=== PATIENT | male | born 1960 | race Caucasian/White ===

== ENCOUNTER 2017-06-06 21:26 | Observation (INO) | payer OTHER, SELFPAY ==
[~2017-06-06 21:26] MED LIST: ISOVUE-370 76%-LOCM 1 ML ONE
[2017-06-06 21:43] LABS: #Basophils 0.1 thou/uL (0.0-0.2); #Eosinphils 0.6 thou/uL (0.0-0.7); #Lymphocytes 2.9 thou/uL (1.20-3.40); #Monocytes 0.9 thou/uL (0.11-0.59); #Neutrophils 6.4 thou/uL (1.40-6.50); %Basophils 0.7 % (0.0-1.0); %Eosinophils 5.7 % (0.0-10.0); %Lymphocytes 26.4 % (21.0-51.0); %Monocytes 8.5 % (0.0-10.0); Hematocrit 44.6 % (42.0-52.0); Red Blood Cell (RBC) Count 4.28 mill/uL (4.70-6.10); White Blood Cell (WBC) Count 10.9 thou/uL (4.8-10.8)
[2017-06-06 21:53] LABS: PTT 26.4 SEC (22.9-36.1); Prothrombin Time 14.6 SEC (12.0-14.7)
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
[2017-06-06 22:03] LABS: ALT (SGPT) 108 U/L (8-55); AST (SGOT) 95 U/L (5-34); Alkaline Phosphatase 68 U/L (40-150); Anion Gap 19 mmol/L (10-20); BUN (Urea Nitrogen) 6 mg/dL (8.4-25.7); Bilirubin, Total 0.6 mg/dL (0.2-1.2); Calc. Creatinine Clearance 0 mL/min (70-130); Calcium 8.3 mg/dL (7.8-10.44); Carbon Dioxide 16 mmol/L (22-29); Chloride 104 mmol/L (98-107); Estimated GFR-MDRD Greater than 90; Globulin 3.7 g/dL (2.4-3.5); Protein, Total 7.4 g/dL (6.0-8.3)
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
[2017-06-06] MEDS ORDERED: Lidocaine 1% w/Epinephrine 1:200K 30 ML VIAL ONE (22:05)
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
[2017-06-06] MEDS ORDERED: Dextrose 5% in Water 1,000 ML IV PRN ×2 (22:52→22:57)
[2017-06-06] MEDS ORDERED: Ondansetron HCl/PF 4 MG/2 ML Vial IVP PRN (22:52)
[2017-06-06] MEDS ORDERED: Dextrose 50% Abboject 50 ML SYRINGE SLOW IVP PRN ×2 (22:52→22:57)
[2017-06-06] MEDS ORDERED: Rib Fracture Protocol PO SCH (23:00)
[2017-06-06] MEDS ORDERED: Cyclobenzaprine 10 MG TAB PO PRN (23:30)
[2017-06-06] MEDS ORDERED: Adacel (T-DAP) 0.5 ML VIAL ONE (23:36)
[2017-06-07] MEDS: Acetaminophen 500 MG TAB PO SCH ×3 (00:31→11:27)
[2017-06-07] MEDS: traMADol HCl 50 MG TAB PO SCH ×3 (00:31→11:27)
[2017-06-07] MEDS: Ibuprofen 800 MG TAB PO SCH ×3 (00:31→11:27)
[2017-06-07] MEDS: Sodium Chloride 0.9% 1,000 ML IV SCH ×2 (00:33→08:19)
[2017-06-07 00:41] VITALS: BMI 29.4
[2017-06-07 06:10] LABS: #Lymphocytes 1.8 thou/uL (1.20-3.40); #Monocytes 0.9 thou/uL (0.11-0.59); #Neutrophils 7.5 thou/uL (1.40-6.50); %Basophils 0.5 % (0.0-1.0); %Eosinophils 0.4 % (0.0-10.0); %Lymphocytes 17.2 % (21.0-51.0); Hematocrit 33.6 % (42.0-52.0); Mean Platelet Volume 7.7 fL (7.4-10.4); Red Blood Cell (RBC) Count 3.25 mill/uL (4.70-6.10); White Blood Cell (WBC) Count 10.3 thou/uL (4.8-10.8)
[2017-06-07 08:05] VITALS: TEMP 98.4
[2017-06-07] MEDS: Gabapentin 300 MG CAP PO SCH ×2 (08:16→16:00)
--- NOTE | 2017-06-07 08:24 | RAD ---
FRONTAL VIEW CHEST: INDICATION: Pain, rule out pneumothorax. FINDINGS: Elevation of the right hemidiaphragm. There is no discrete pneumothorax. There is patchy opacity o f the right lower lung zone, likely atelectasis as a result of the elevated right hemidiaphragm. Th e cardiac silhouette is accentuated as is the pulmonary vasculature by the portable technique. Ther e is spinal hardware overlying the low thoracic spine. There is a chronic-appearing posterior right rib deformity, right 7th rib. IMPRESSION: No discrete pneumothorax. POS: [facility]
[2017-06-07] MEDS ORDERED: Folic Acid 1 MG TAB PO SCH (10:30)
[2017-06-07] MEDS ORDERED: Oxazepam 10 MG CAP PO SCH ×2 (10:30→18:00)
[2017-06-07 12:46] VITALS: BP 160/94
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
[2017-06-08] MEDS ORDERED: Folic Acid 1 MG TAB PO SCH (09:00)
== END 2017-06-07 16:00 | disposition home or self-care (01) ==
LOC: ERS 21:26 → SURG A 22:52
PROVIDERS: ADMIT Surgery; ATTEND Surgery
DX: S06.0X1A Concussion with loss of consciousness of 30 minutes or less, initial encounter (principal); S22.41XA Multiple fractures of ribs, right side, initial encounter for closed fracture; S01.01XA Laceration without foreign body of scalp, initial encounter; S27.321A Contusion of lung, unilateral, initial encounter; T14.8 Other injury of unspecified body region; M19.90 Unspecified osteoarthritis, unspecified site; K70.30 Alcoholic cirrhosis of liver without ascites; F10.229 Alcohol dependence with intoxication, unspecified; F17.220 Nicotine dependence, chewing tobacco, uncomplicated; Z88.5 Allergy status to narcotic agent; V40.5XXA Car driver injured in collision with pedestrian or animal in traffic accident, initial encounter
CPT/HCPCS: 12002; 36415; 70450; 71010; 71260; 72125; 74177; 80053; 80307; 85025; 85610; 85730; 86850; 86900; 86901; 90471; 90715; 94640; 96360; 96361; 99292; G0378; G0390; J7620

== ENCOUNTER 2020-03-16 14:20 | Outpatient (CLI) | payer BC ==
--- NOTE | 2020-03-16 14:40 | ULT ---
Exam:Leftlower extremity venous ultrasound with Doppler HISTORY: Leftlower extremity swelling, pain and edema COMPARISON: None TECHNIQUE: Grayscale, color flow, Doppler imaging and spectral wave muscle performed left lower extre mity venous system FINDINGS: There is compressibility, presence of flow and augmentation in the common femoral vein, femoral vein and popliteal vein. There is flow in the posterior tibial vein. There is flow in the greater saphenous vein and profunda femoral vein and peroneal vein. Incidental left inguinal lymph node measu ring 1.9 cm in maximum dimension, with preserved hilum. IMPRESSION: No thrombus in the left lower extremity deep venous system.
== END 2020-03-16 14:21 | disposition home or self-care (01) ==
LOC: SCSULT 14:20
PROVIDERS: ATTEND Nurse Practitioner Family
DX: M79.89 Other specified soft tissue disorders (principal)

== ENCOUNTER 2020-04-24 09:59 | Outpatient (CLI) | payer BC ==
--- NOTE | 2020-04-24 11:45 | ULT ---
HEPATIC DUPLEX ULTRASOUND WITH COLOR AND SPECTRAL DOPPLER IMAGING: Date: 04/24/2020 HISTORY: Abnormal liver enzymes, alcohol dependence. History of hepatitis C. FINDINGS: There is evidence for hepatomegaly with very coarse altered liver echogenicity, evidence for nonspeci fic hepatic parenchymal process. The gallbladder shows no evidence for gallstones or gallbladder wall thickening. Common bile duct is 0.7 cm in size. Splenomegaly with the spleen measuring up to 14.0 cm . Pancreas and aorta regions were mostly obscured. Vascular duplex with color and spectral Doppler imaging demonstrates hepatic venous and portal venous flow to be antegrade. IMPRESSION: 1. Liver enlargement with coarse altered liver echogenicity. 2. Splenomegaly. 3. Antegrade hepatic and portal venous flow. POS: [facility]
== END 2020-04-24 10:00 | disposition home or self-care (01) ==
LOC: SCSULT 09:59
PROVIDERS: ATTEND Internal Medicine Gastroenterology
DX: R94.5 Abnormal results of liver function studies (principal); F10.20 Alcohol dependence, uncomplicated; J98.4 Other disorders of lung; R16.2 Hepatomegaly with splenomegaly, not elsewhere classified; R93.2 Abnormal findings on diagnostic imaging of liver and biliary tract; Z86.19 Personal history of other infectious and parasitic diseases
CPT/HCPCS: 76705

== ENCOUNTER 2023-06-09 08:01 | Inpatient (IN) | payer BC ==
[2023-06-09 08:26] LABS: #Basophils 0.1 thou/uL (0.0-0.2); #Eosinphils 0.1 thou/uL (0.0-0.7); #Monocytes 1.2 thou/uL (0.11-0.59); #Neutrophils 8.4 thou/uL (1.40-6.50); %Basophils 0.7 % (0.0-1.0); %Eosinophils 0.9 % (0.0-10.0); %Lymphocytes 9.7 % (21.0-51.0); %Monocytes 10.8 % (0.0-10.0); %Neutrophils 77.4 % (42.0-75.0); Hematocrit 39.1 % (42.0-52.0); Hemoglobin 12.5 g/dL (14.0-18.0); Mean Corpuscular Hemoglobin 27.9 pg (27.0-31.0); Mean Corpuscular Volume 87.3 fl (78.0-98.0); Mean Platelet Volume 10.6 fL (7.4-10.4); Platelet Count 193 10x3/uL (130-400); RBC Distribution Width 16.8 % (11.5-14.5); Red Blood Cell (RBC) Count 4.48 mill/uL (4.70-6.10); White Blood Cell (WBC) Count 10.9 10x3/uL (4.8-10.8)
[2023-06-09] MEDS ORDERED: Pantoprazole 40 MG VIAL ONE (08:44)
[2023-06-09] MEDS ORDERED: Sucralfate 1 GM/10 ML UDCUP ONE (08:44)
[2023-06-09] MEDS ORDERED: cefTRIAXone (ROCEPHIN) 1 GM VIAL ONE (08:44)
[2023-06-09 08:50] LABS: INR-International Normal Ratio 1.1; PTT 29.9 sec (22.9-36.1); Prothrombin Time 14.4 sec (12.0-14.7)
[2023-06-09 09:04] LABS: ALT (SGPT) 27 U/L (8-55); AST (SGOT) 20 U/L (5-34); Albumin 3.9 g/dL (3.4-4.8); Alkaline Phosphatase 49 U/L (40-110); Anion Gap 16 mmol/L (10-20); BUN (Urea Nitrogen) 36 mg/dL (8.4-25.7); Bilirubin, Total 0.5 mg/dL (0.2-1.2); Calc. Creatinine Clearance 0 mL/min (70-130); Calcium 9.2 mg/dL (7.8-10.44); Carbon Dioxide 19 mmol/L (23-31); Chloride 102 mmol/L (98-107); Estimated GFR 100; Globulin 3.9 g/dL (2.4-3.5); Glucose 169 mg/dL (80-115); Potassium 4.1 mmol/L (3.5-5.1); Protein, Total 7.8 g/dL (5.8-8.1); Sodium 133 mmol/L (136-145)
[2023-06-09] MEDS ORDERED: Octreotide Acetate 500 MCG/ML VIAL ONE (10:52)
[2023-06-09] MEDS ORDERED: Octreotide Acetate 1,250 MCG in Sodium Chloride 0.9% 250 ML 250 ML IVPB SCH (12:00)
[2023-06-09] MEDS ORDERED: Octreotide Acetate 500 MCG/ML VIAL SLOW IVP SCH (12:00)
[2023-06-09] MEDS ORDERED: PROPOFOL 200 MG/20 ML VIAL ONE (12:54)
[2023-06-09] MEDS ORDERED: Lidocaine 1% PF 5 ML VIAL ONE (12:54)
[2023-06-09] MEDS ORDERED: Acetaminophen 325 MG TAB PO PRN ×2 (13:48→13:57)
[2023-06-09] MEDS ORDERED: HYDROcodone/Acetaminophen 5/325 mg Tablet PO PRN (13:48)
[2023-06-09] MEDS ORDERED: Ondansetron PF 4 MG/2 ML Vial IVP PRN (13:48)
[2023-06-09] MEDS ORDERED: Lorazepam 2 MG/ML VIAL SLOW IVP PRN (13:56)
[2023-06-09 17:29] VITALS: BMI 35.6
[2023-06-09 19:15] LABS: #Basophils 0.1 thou/uL (0.0-0.2); #Eosinphils 0.2 thou/uL (0.0-0.7); #Monocytes 0.6 thou/uL (0.11-0.59); #Neutrophils 3.1 thou/uL (1.40-6.50); %Basophils 1.1 % (0.0-1.0); %Eosinophils 3.7 % (0.0-10.0); %Lymphocytes 26.2 % (21.0-51.0); %Monocytes 10.9 % (0.0-10.0); %Neutrophils 57.9 % (42.0-75.0); Hematocrit 32.4 % (42.0-52.0); Hemoglobin 10.3 g/dL (14.0-18.0); Mean Corpuscular HGB CONC 31.8 g/dL (32.0-36.0); Mean Corpuscular Hemoglobin 27.7 pg (27.0-31.0); Mean Corpuscular Volume 87.1 fl (78.0-98.0); Mean Platelet Volume 10.1 fL (7.4-10.4); Platelet Count 121 10x3/uL (130-400); Red Blood Cell (RBC) Count 3.72 mill/uL (4.70-6.10); White Blood Cell (WBC) Count 5.4 10x3/uL (4.8-10.8)
[2023-06-10 08:14] LABS: #Basophils 0.1 thou/uL (0.0-0.2); #Eosinphils 0.3 thou/uL (0.0-0.7); #Monocytes 0.5 thou/uL (0.11-0.59); #Neutrophils 3.1 thou/uL (1.40-6.50); %Eosinophils 5.6 % (0.0-10.0); %Lymphocytes 19.4 % (21.0-51.0); %Monocytes 9.9 % (0.0-10.0); %Neutrophils 63.7 % (42.0-75.0); Hematocrit 30.7 % (42.0-52.0); Hemoglobin 9.7 g/dL (14.0-18.0); Mean Corpuscular HGB CONC 31.6 g/dL (32.0-36.0); Mean Corpuscular Hemoglobin 27.5 pg (27.0-31.0); Mean Platelet Volume 11.3 fL (7.4-10.4); Platelet Count 124 10x3/uL (130-400); RBC Distribution Width 17.2 % (11.5-14.5); Red Blood Cell (RBC) Count 3.53 mill/uL (4.70-6.10); White Blood Cell (WBC) Count 4.8 10x3/uL (4.8-10.8)
[2023-06-10 08:37] LABS: Anion Gap 9 mmol/L (10-20); BUN (Urea Nitrogen) 23 mg/dL (8.4-25.7); Calc. Creatinine Clearance 146 mL/min (70-130); Calcium 8.4 mg/dL (7.8-10.44); Carbon Dioxide 25 mmol/L (23-31); Chloride 103 mmol/L (98-107); Estimated GFR 100; Glucose 105 mg/dL (80-115); Potassium 4.4 mmol/L (3.5-5.1); Sodium 133 mmol/L (136-145)
[2023-06-10] MEDS ORDERED: Nadolol 40 MG TAB PO SCH (09:00)
[2023-06-10] MEDS ORDERED: Thiamine 100 MG TAB PO SCH (09:00)
[2023-06-10 11:31] VITALS: BP 134/79; TEMP 97.8
== END 2023-06-10 11:50 | disposition home or self-care (01) | DRG 378 ==
LOC: ERS 08:01 → SDC 11:00 → T4-A 13:26
PROVIDERS: ADMIT Internal Medicine; ATTEND Hospitalist
PROC: 0DJ08ZZ Inspection of Upper Intestinal Tract, Via Natural or Artificial Opening Endoscopic (ICD-10-PCS; principal; 2023-06-09)
DX: K92.0 Hematemesis (principal); D62 Acute posthemorrhagic anemia; K74.60 Unspecified cirrhosis of liver; J43.9 Emphysema, unspecified; F17.210 Nicotine dependence, cigarettes, uncomplicated; K29.80 Duodenitis without bleeding; K29.70 Gastritis, unspecified, without bleeding; K20.90 Esophagitis, unspecified without bleeding; F10.10 Alcohol abuse, uncomplicated; T39.395A Adverse effect of other nonsteroidal anti-inflammatory drugs [NSAID], initial encounter; Z98.890 Other specified postprocedural states; Z88.5 Allergy status to narcotic agent; Z88.8 Allergy status to other drugs, medicaments and biological substances
CPT/HCPCS: 36415; 71046; 80048; 80053; 85025; 85610; 85730; 86850; 86900; 86901; 93005; 96361; 96374; 96375; C9113; J0696; J2354; J2704; J7050

== ENCOUNTER 2025-08-11 08:10 | Inpatient (IN) | payer BC, OTHER ==
[2025-08-11] MEDS ORDERED: Ondansetron PF 4 MG/2 ML Vial ONE (08:29)
[2025-08-11 08:46] LABS: #Basophils 0.06 10x3/uL (0.0-0.2); #Eosinophils 0.06 10x3/uL (0.0-0.7); #Monocytes 0.91 10x3/uL (0.11-0.59); #Neutrophils 5.87 10x3/uL (1.40-6.50); %Basophils 0.8 % (0.0-1.0); %Eosinophils 0.8 % (0.0-10.0); %Lymphocytes 10.6 % (21.0-51.0); %Monocytes 11.7 % (0.0-10.0); %Neutrophils 75.7 % (42.0-75.0); Hematocrit 34.3 % (42.0-52.0); Hemoglobin 11.4 g/dL (14.0-18.0); Mean Corpuscular Hemoglobin 32.2 pg (27.0-31.0); Mean Corpuscular Volume 96.9 fL (78.0-98.0); Platelet Count 129 10x3/uL (130-400); Red Blood Cell (RBC) Count 3.54 mill/uL (4.70-6.10); White Blood Cell (WBC) Count 7.75 10x3/uL (4.8-10.8)
[2025-08-11 09:02] LABS: INR-International Normal Ratio 1.3; Prothrombin Time 16.1 sec (12.0-14.7)
[2025-08-11 09:03] LABS: ALT (SGPT) 31 U/L (Less than 45); AST (SGOT) 61 U/L (11-34); Albumin 3.3 g/dL (3.1-4.5); Alkaline Phosphatase 62 U/L (40-110); Anion Gap 14 mmol/L (10-20); BUN (Urea Nitrogen) 38 mg/dL (8.4-25.7); Bilirubin, Total 1.0 mg/dL (0.3-1.2); Calc. Creatinine Clearance 0 mL/min (70-130); Calcium 8.7 mg/dL (7.8-10.44); Carbon Dioxide 22 mmol/L (23-31); Chloride 106 mmol/L (98-107); Globulin 4.1 g/dL (2.4-3.5); Glucose 158 mg/dL (80-115); Lipase 26 U/L (8-78); PTT 35.4 sec (22.9-36.1); Potassium 4.0 mmol/L (3.5-5.1); Sodium 138 mmol/L (136-145)
[2025-08-11] MEDS ORDERED: cefTRIAXone (ROCEPHIN) 2 GM VIAL ONE (12:16)
[2025-08-11 12:46] LABS: Magnesium 2.1 mg/dL (1.6-2.6)
[2025-08-11] MEDS ORDERED: Iopamidol-370 76% 500 ML MDV (1 ML CHARGE) ONE (13:40)
[2025-08-11] MEDS ORDERED: Electrolyte Replacement Protocol 1 EACH FS SCH (14:15)
[2025-08-11] MEDS ORDERED: Magnesium 2 GM/50 ML(in water) 2 GM in Premix 1 BAG IVPB PRN (14:30)
[2025-08-11] MEDS ORDERED: Potassium Chloride 20 MEQ in Premix 1 BAG IVPB PRN (14:30)
[2025-08-11] MEDS ORDERED: PHOS-NAK 1 PKT PACK PO PRN (14:30)
[2025-08-11] MEDS: Multivit, Therapeutic 1 TAB PO SCH (15:09)
[2025-08-11] MEDS: Folic Acid 1 MG TAB PO SCH (15:10)
[2025-08-11] MEDS: Octreotide Acetate 1,250 MCG in Sodium Chloride 0.9% 250 ML 250 ML IVPB SCH (15:16)
[2025-08-11] MEDS: Pantoprazole 80 MG, Admixture Fee 1 EACH in Sodium Chloride 0.9% 100 ML IVPB SCH (15:18)
[2025-08-11 16:52] VITALS: BMI 32.5
[2025-08-11 17:12] LABS: Bilirubin, Direct 0.3 mg/dL (0.1-0.3); Magnesium 2.1 mg/dL (1.6-2.6)
[2025-08-11 21:57] LABS: Hemoglobin 10.4 g/dL (14.0-18.0)
[2025-08-12 06:21] LABS: Hemoglobin 9.4 g/dL (14.0-18.0)
[2025-08-12 06:24] LABS: #Basophils 0.06 10x3/uL (0.0-0.2); #Eosinophils 0.32 10x3/uL (0.0-0.7); #Monocytes 0.51 10x3/uL (0.11-0.59); #Neutrophils 2.37 10x3/uL (1.40-6.50); %Basophils 1.5 % (0.0-1.0); %Eosinophils 8.1 % (0.0-10.0); %Lymphocytes 17.6 % (21.0-51.0); %Monocytes 12.8 % (0.0-10.0); %Neutrophils 59.7 % (42.0-75.0); Hematocrit 29.8 % (42.0-52.0); Hemoglobin 9.5 g/dL (14.0-18.0); Mean Corpuscular Hemoglobin 32.3 pg (27.0-31.0); Mean Corpuscular Volume 101.4 fL (78.0-98.0); Platelet Count 91 10x3/uL (130-400); Red Blood Cell (RBC) Count 2.94 mill/uL (4.70-6.10); White Blood Cell (WBC) Count 3.97 10x3/uL (4.8-10.8)
[2025-08-12 06:35] LABS: ALT (SGPT) 30 U/L (Less than 45); AST (SGOT) 67 U/L (11-34); Albumin 2.9 g/dL (3.1-4.5); Alkaline Phosphatase 50 U/L (40-110); Anion Gap 10 mmol/L (10-20); BUN (Urea Nitrogen) 31 mg/dL (8.4-25.7); Bilirubin, Total 0.7 mg/dL (0.3-1.2); Calc. Creatinine Clearance 126 mL/min (70-130); Calcium 8.0 mg/dL (7.8-10.44); Carbon Dioxide 25 mmol/L (23-31); Chloride 110 mmol/L (98-107); Globulin 3.4 g/dL (2.4-3.5); Glucose 129 mg/dL (80-115); Potassium 4.2 mmol/L (3.5-5.1); Sodium 141 mmol/L (136-145)
[2025-08-12] MEDS: PNEUMOC 20-VAL CONJ-DIP CRM/PF 0.5 ML SYRINGE IM ONE (08:56)
[2025-08-12] MEDS: FLU (Fluad Triv) 25-26 (65UP)PF 45 MCG/0.5 ML Syringe IM ONE (08:58)
[2025-08-12] MEDS: Multivit, Therapeutic 1 TAB PO SCH (08:59)
[2025-08-12] MEDS: Folic Acid 1 MG TAB PO SCH (08:59)
[2025-08-12 14:32] LABS: Hemoglobin 9.9 g/dL (14.0-18.0)
[2025-08-12] MEDS: Pantoprazole 40 MG VIAL IVP SCH ×2 (17:26→20:39)
[2025-08-12] MEDS: Octreotide Acetate 1,250 MCG in Sodium Chloride 0.9% 250 ML 250 ML IVPB SCH (17:27)
[2025-08-12 17:33] LABS: Iron 31 ug/dL (65-175); Iron Binding Capacity, Total 306 mcg/dL (261-462)
[2025-08-12 17:55] LABS: HBSAB Concentration Less than 8.00 mIU/mL; Hep B Core Total Ab NONREACTIVE (NonReactive); Hep B Core Total Index 0.22 S/CO (0-0.79); Hep B Surf Ag NONREACTIVE S/CO (NonReactive)
[2025-08-12 18:36] LABS: Ferritin 53.99 ng/mL (22-322)
[2025-08-13 09:14] LABS: #Basophils 0.04 10x3/uL (0.0-0.2); #Eosinophils 0.38 10x3/uL (0.0-0.7); #Monocytes 0.37 10x3/uL (0.11-0.59); #Neutrophils 1.50 10x3/uL (1.40-6.50); %Basophils 1.5 % (0.0-1.0); %Eosinophils 13.9 % (0.0-10.0); %Lymphocytes 16.1 % (21.0-51.0); %Monocytes 13.5 % (0.0-10.0); %Neutrophils 54.6 % (42.0-75.0); Hematocrit 28.5 % (42.0-52.0); Hemoglobin 9.0 g/dL (14.0-18.0); Mean Corpuscular Hemoglobin 32.3 pg (27.0-31.0); Mean Corpuscular Volume 102.2 fL (78.0-98.0); Platelet Count 79 10x3/uL (130-400); Red Blood Cell (RBC) Count 2.79 mill/uL (4.70-6.10); White Blood Cell (WBC) Count 2.74 10x3/uL (4.8-10.8)
[2025-08-13 09:24] LABS: Anion Gap 9 mmol/L (10-20); BUN (Urea Nitrogen) 14 mg/dL (8.4-25.7); Calc. Creatinine Clearance 147 mL/min (70-130); Calcium 7.7 mg/dL (7.8-10.44); Carbon Dioxide 27 mmol/L (23-31); Chloride 102 mmol/L (98-107); Glucose 121 mg/dL (80-115); Potassium 3.9 mmol/L (3.5-5.1); Sodium 134 mmol/L (136-145)
[2025-08-13] MEDS ORDERED: PROPOFOL 200 MG/20 ML VIAL ONE (11:46)
[2025-08-14 08:27] LABS: #Basophils 0.04 10x3/uL (0.0-0.2); #Eosinophils 0.46 10x3/uL (0.0-0.7); #Monocytes 0.34 10x3/uL (0.11-0.59); #Neutrophils 1.73 10x3/uL (1.40-6.50); %Basophils 1.3 % (0.0-1.0); %Eosinophils 14.9 % (0.0-10.0); %Lymphocytes 16.2 % (21.0-51.0); %Monocytes 11.0 % (0.0-10.0); %Neutrophils 56.3 % (42.0-75.0); Hematocrit 28.5 % (42.0-52.0); Hemoglobin 9.3 g/dL (14.0-18.0); Mean Corpuscular Hemoglobin 32.6 pg (27.0-31.0); Mean Corpuscular Volume 100.0 fL (78.0-98.0); Platelet Count 80 10x3/uL (130-400); Red Blood Cell (RBC) Count 2.85 mill/uL (4.70-6.10); White Blood Cell (WBC) Count 3.08 10x3/uL (4.8-10.8)
[2025-08-14 08:35] LABS: Anion Gap 10 mmol/L (10-20); BUN (Urea Nitrogen) 9 mg/dL (8.4-25.7); Calc. Creatinine Clearance 151 mL/min (70-130); Calcium 7.8 mg/dL (7.8-10.44); Carbon Dioxide 23 mmol/L (23-31); Chloride 100 mmol/L (98-107); Glucose 184 mg/dL (80-115); Potassium 4.0 mmol/L (3.5-5.1); Sodium 129 mmol/L (136-145)
[2025-08-14] MEDS: Thiamine 100 MG TAB PO SCH (08:53)
[2025-08-14 12:02] VITALS: BP 157/86; TEMP 98.8
[2025-08-15 12:29] LABS: EliA Vaculitis New Method **** NEW METHOD ****; Mitochondrial Ab 1.7 U/mL (<4 Negative)
[2025-08-15 14:14] LABS: Smooth Muscle Total ABS 27 Units (0-19)
[2025-08-16 00:39] LABS: Hepatitis A Total ABS Positive (Negative)
[2025-08-16 11:38] LABS: Hep C PCR-Quant HCV Not Detected IU/mL (.)
== END 2025-08-14 16:46 | disposition home or self-care (01) | DRG 432 ==
LOC: ERS 08:10 → OBS 12:43 → OBSVTOIN 08-12 18:58
PROVIDERS: ADMIT Internal Medicine; ATTEND Family Medicine
PROC: 3E0234Z Introduction of Serum, Toxoid and Vaccine into Muscle, Percutaneous Approach (ICD-10-PCS; 2025-08-12)
PROC: 06L28CZ Occlusion of Gastric Vein with Extraluminal Device, Via Natural or Artificial Opening Endoscopic (ICD-10-PCS; principal; 2025-08-13)
DX: K70.30 Alcoholic cirrhosis of liver without ascites (principal); I85.11 Secondary esophageal varices with bleeding; K92.0 Hematemesis; B19.20 Unspecified viral hepatitis C without hepatic coma; Z88.5 Allergy status to narcotic agent; Z88.8 Allergy status to other drugs, medicaments and biological substances; F17.200 Nicotine dependence, unspecified, uncomplicated; K86.9 Disease of pancreas, unspecified; Z98.890 Other specified postprocedural states; F10.10 Alcohol abuse, uncomplicated; Z23 Encounter for immunization
CPT/HCPCS: 36415; 74177; 74183; 80048; 80053; 82103; 82105; 82248; 82728; 83516; 83540; 83550; 83690; 83735; 84100; 85025; 85610; 85730; 86015; 86301; 86704; 86706; 86708; 86850; 86900; 86901; 87340; 87522; 90471; 90653; 90677; 93005; 96365; 96366; 96375; 96376; G0009; G0378; J0696; J2250; J2354; J2405; J2470; J2704; J3411; J7030; J7050; Q9967